=== PATIENT | male | born 1965 | race Caucasian/White ===

== ENCOUNTER 2024-04-18 08:34 | Emergency (ER) | payer BC ==
[~2024-04-18] VITALS: Ht 188 cm; Wt 88.1 kg
[2024-04-18 08:34] VITALS: TEMP 98
[2024-04-18] MEDS ORDERED: enoxaparin 100mg/ml syringe SUBCUT ONE (10:30)
[2024-04-18] MEDS ORDERED: APIX5TAB3 PO (11:14)
[2024-04-18] MEDS: enoxaparin 60mg/0.6ml syringe SUBCUT ONE (11:42)
[2024-04-18 12:27] VITALS: BP 131/80; PULSE 81; RESP 18; O2SAT 96
== END 2024-04-18 12:46 | disposition home or self-care (01) ==
LOC: ER 08:34
DX: I82.4Z1 Acute embolism and thrombosis of unspecified deep veins of right distal lower extremity (principal); F17.200 Nicotine dependence, unspecified, uncomplicated; I49.8 Other specified cardiac arrhythmias
CPT/HCPCS: 93005; 93971; 96372; 99285; J1650